=== PATIENT | male | born 1995 | race Caucasian/White ===

== ENCOUNTER 2022-03-25 21:45 | Emergency (ER) | payer SELFPAY ==
[~2022-03-25] VITALS: Ht 188 cm; Wt 92.5 kg
[2022-03-25 21:54] VITALS: BP 136/82
[2022-03-25] MEDS ORDERED: TRAM50TA1 PO (23:32)
[2022-03-26 00:04] VITALS: BP 120/79
== END 2022-03-26 00:04 | disposition home or self-care (01) ==
LOC: MED 21:45
DX: S52.572A Other intraarticular fracture of lower end of left radius, initial encounter for closed fracture (principal); X58.XXXA Exposure to other specified factors, initial encounter; Y93.89 Activity, other specified; Y92.89 Other specified places as the place of occurrence of the external cause; Y99.8 Other external cause status
CPT/HCPCS: 73110; 99283